=== PATIENT | female | born 2000 | race Hispanic/Latino ===

== ENCOUNTER 2024-01-03 09:44 | Inpatient (IN) | payer MEDICAID, OTHER, SELFPAY ==
[2024-01-03] MEDS ORDERED: Tranexamic Acid 1,000 MG/10 ML VIAL IVP PRN (11:04)
[2024-01-03] MEDS ORDERED: Misoprostol 200 MCG TAB PR PRN (11:04)
[2024-01-03] MEDS ORDERED: Ondansetron PF 4 MG/2 ML Vial IVP PRN ×4 (11:04→16:28)
[2024-01-03] MEDS ORDERED: Carboprost 250 MCG/ML AMP IM PRN (11:04)
[2024-01-03] MEDS ORDERED: Oxytocin 30 units/NS 500 ML 500 ML IV SCH (11:04)
[2024-01-03] MEDS ORDERED: Methylergonovine 0.2 MG/ML VIAL IM PRN (11:04)
[2024-01-03] MEDS ORDERED: Promethazine HCl 25 MG/ML VIAL IM PRN ×3 (11:04→16:28)
[2024-01-03] MEDS ORDERED: Diphenoxylate HCl/Atropine Tablet PO PRN (11:04)
[2024-01-03] MEDS ORDERED: Bicitra 30 ML UDCUP PO PRN (11:04)
[2024-01-03] MEDS ORDERED: Lactated Ringer's 1,000 ML IV SCH (11:04)
[2024-01-03] MEDS ORDERED: hydrALAZINE 20 MG/ML VIAL SLOW IVP PRN ×2 (11:04→16:28)
[2024-01-03 11:09] VITALS: BMI 23.6
[2024-01-03 11:21] LABS: Hematocrit 33.8 % (34.9-44.5); Hemoglobin 11.2 g/dL (12.0-15.5); Mean Corpuscular HGB CONC 33.1 g/dL (32.0-36.0); Mean Corpuscular Hemoglobin 30.5 pg (27.0-33.0); Mean Corpuscular Volume 92.1 fL (81.6-98.3); Mean Platelet Volume 11.7 fL (7.4-10.4); Platelet Count 238 10x3/uL (150-450); RBC Distribution Width 13.8 % (11.5-14.5); Red Blood Cell (RBC) Count 3.67 10x6/uL (3.90-5.03); White Blood Cell (WBC) Count 8.6 10x3/uL (3.5-10.5)
[2024-01-03] MEDS: CEFAZOLIN 2 GM in Sodium Chloride 0.9% 100 ML IVPB SCH (11:38)
[2024-01-03] MEDS: Famotidine/PF 20 mg/2ml Vial SLOW IVP PRN (11:38)
[2024-01-03] MEDS ORDERED: Naloxone HCl 0.4 mg/ml Vial IV PRN (11:39)
[2024-01-03] MEDS ORDERED: Naloxone HCl 0.4 mg/ml Vial IVP PRN ×2 (11:39)
[2024-01-03] MEDS ORDERED: fentaNYL 50 mcg/mL 1 mL Vial SLOW IVP PRN (11:39)
[2024-01-03] MEDS ORDERED: diphenhydrAMINE 50 MG/ML VIAL IVP PRN (11:39)
[2024-01-03] MEDS ORDERED: Meperidine HCl/PF 25 MG (1 mL) VIAL SLOW IVP PRN (11:39)
[2024-01-03] MEDS ORDERED: Moisturizing Cream (Eucerin) 113 GM JAR TOP PRN (11:39)
[2024-01-03] MEDS ORDERED: Communication Order-Pharmacy FS SCH (11:45)
[2024-01-03 11:55] LABS: Syphilis Antibody Nonreactive (Nonreactive); Syphilis Antibody Index 0.03 S/CO (<1.00 Non-Reactive)
[2024-01-03 11:56] LABS: HBsAg Index 0.15 S/CO (0-0.99); Hep B Surf Ag - L&D Non-Reactive S/CO (NonReactive)
[2024-01-03] MEDS ORDERED: Lanolin Ointment 7 GM TUBE TOP PRN (16:28)
[2024-01-03] MEDS ORDERED: diphenhydrAMINE 25 MG CAP PO PRN (16:28)
[2024-01-03] MEDS ORDERED: Bisacodyl 10 MG SUPP PR PRN (16:28)
[2024-01-03] MEDS: Hepatitis B Vaccine 10 MCG/0.5 ML SYR ONE (17:09)
[2024-01-03] MEDS: Oxytocin 10 UNITS/ML VIAL ONE (17:09)
[2024-01-03] MEDS: PHENYLEPHRINE-NS 100 MCG/ML 10 ML SYRINGE ONE (17:09)
[2024-01-03] MEDS: ePHEDrine Sulfate 50 MG/10 ML VIAL ONE (17:09)
[2024-01-03] MEDS: Ondansetron PF 4 MG/2 ML Vial ONE (17:09)
[2024-01-03] MEDS: Morphine PF 10 MG/10 ML VIAL ONE (17:09)
[2024-01-03] MEDS: Erythromycin Base 0.5% Oint 1 GM TUBE ONE (17:09)
[2024-01-03] MEDS: fentaNYL 50 mcg/mL 1 mL Vial ONE (17:10)
[2024-01-03] MEDS: Phytonadione Neonatal 1 MG/0.5 ML AMP ONE (17:10)
[2024-01-03] MEDS: Boostrix 0.5 ML (Tdap) VIAL (>/=7 yrs of age) IM ONE (17:10)
[2024-01-03] MEDS: Ketorolac Tromethamine 30 MG (1 mL) VIAL ONE (17:10)
[2024-01-03] MEDS: Ibuprofen 800 MG TAB PO SCH (17:10)
[2024-01-03] MEDS: Phenylephrine 40 MG/NS 250 ML 250 ML ONE (17:10)
[2024-01-03] MEDS ORDERED: Ketorolac Tromethamine 30 MG (1 mL) VIAL IVP PRN (18:30)
[2024-01-03] MEDS ORDERED: Ketorolac Tromethamine 30 MG (1 mL) VIAL IVP SCH (18:30)
[2024-01-03] MEDS: Docusate 100 MG CAP PO SCH (20:04)
[2024-01-03] MEDS: Ketorolac Tromethamine 30 MG (1 mL) VIAL IVP SCH (20:05)
[2024-01-03] MEDS: Ferrous Sulfate 325 MG TAB PO SCH (20:15)
[2024-01-03] MEDS ORDERED: Meperidine HCl/PF 25 MG (1 mL) VIAL IM PRN (23:45)
[2024-01-03] MEDS: Simethicone Chewable 80 MG TAB PO PRN (23:52)
[2024-01-04 04:13] LABS: Hematocrit 28.5 % (34.9-44.5); Hemoglobin 9.7 g/dL (12.0-15.5); Mean Corpuscular Hemoglobin 31.1 pg (27.0-33.0); Mean Corpuscular Volume 91.3 fL (81.6-98.3); Mean Platelet Volume 11.7 fL (7.4-10.4); Platelet Count 188 10x3/uL (150-450); Red Blood Cell (RBC) Count 3.12 10x6/uL (3.90-5.03); White Blood Cell (WBC) Count 13.7 10x3/uL (3.5-10.5)
[2024-01-04] MEDS: HYDROcodone/Acetaminophen 5/325 mg Tablet PO PRN ×2 (05:46→15:46)
[2024-01-04] MEDS: Prenatal Vitamin 1 TAB PO SCH (08:59)
[2024-01-04] MEDS: Ibuprofen 800 MG TAB PO SCH (13:45)
[2024-01-06 08:03] VITALS: BP 101/57; TEMP 98.7
== END 2024-01-06 16:10 | disposition home or self-care (01) | DRG 788 ==
LOC: CSHLD 10:31 → CSHPP 15:36
PROVIDERS: ADMIT Family Medicine; ATTEND Family Medicine
PROC: 10D00Z1 Extraction of Products of Conception, Low, Open Approach (ICD-10-PCS; principal; 2024-01-03)
DX: O34.211 Maternal care for low transverse scar from previous cesarean delivery (principal); Z79.82 Long term (current) use of aspirin; Z79.899 Other long term (current) drug therapy; Z3A.39 39 weeks gestation of pregnancy; Z37.0 Single live birth
CPT/HCPCS: 36415; 51702; 85027; 86780; 86850; 86900; 86901; 87340; J1885; J2274; J2405; J2590; J3490; S0028